=== PATIENT | female | born 1965 | race Caucasian/White ===

== ENCOUNTER 2023-11-14 08:24 | Observation (INO) ==
--- NOTE | 2023-10-19 11:00 | PAT Medication Instructions ---
Medication Instructions Date of Service October 19, 2023 Home Medications hydrocodone 7.5 mg-acetaminophen 325 mg tablet 1 tab PO TID PRN empagliflozin 10 mg tablet (Jardiance) 10 mg PO QAM sertraline 50 mg tablet (Zoloft) 50 mg PO QAM spironolactone 25 mg tablet 25 mg PO QAM torsemide 20 mg tablet 40 mg PO QAM STOP 3 days before surgery empagliflozin 10 mg tablet (Jardiance) 10 mg PO QAM DO NOT take the morning of surgery spironolactone 25 mg tablet 25 mg PO QAM torsemide 20 mg tablet 40 mg PO QAM Take morning of surgery With a small sip of water, OTHERWISE NOTHING TO EAT OR DRINK AFTER MIDNIGHT: sertraline 50 mg tablet (Zoloft) 50 mg PO QAM hydrocodone 7.5 mg-acetaminophen 325 mg tablet 1 tab PO TID PRN(if needed) Take evening before surgery hydrocodone 7.5 mg-acetaminophen 325 mg tablet 1 tab PO TID PRN(if needed) Other Notes If you have any questions please call us at [phone] or [phone] or [phone] or [phone]
--- NOTE | 2023-10-23 10:40 | Anesthesiology Consultation ---
Date of Service October 23, 2023 Assessment & Plan (1) Encounter for pre-operative examination: Chart Review Chart Review: Acceptable Risk for Surgery and Patient seen in Pre Admission Testing - Patient is NOT an ideal OPJ candidate Per PAT appt on 10/23/23, no recent illness/disease exposures, illness related symptoms, or recent illness/disease positive tests. Will leave to surgeon's discretion if preop Covid testing needed Last seen by pulm 10/03/23= seen for follow up. Patient feels like she is doing better than 6-8 months ago. Using supportive oxygen when out3 lpm. Room air at home. Currently under evaluation for knee pain. Patient has risk factors for development of smoking-related lung diseasedo not think that there is any compelling evidence that this is the case. Rather feel breathing issues likely related to heart failure exacerbation triggered by influenza that led to her hospitalization of acute respiratory failure. PFTs can be explained by her obesity. Has stopped use of maintenance therapy for what was thought tentatively to be COPD without detriment. Chronic hypoxemic and possibly hypercarbic failure which is being addressed with PAP therapy plus supplemental oxygen at night. Also addressing her severe JEY. In generalshe seems to be on an improving course. Continue to current therapy. Does not feel maintenance inhaler needed. Encouraged weight loss. Also encourage smoking cessation. Follow-up in 6 months. Patient last seen by cardio 07/26/23= seen for follow up on chronic diastolic CHF. Patient doing very well. On good medical regiment. This includes loop diuretic, spironolactone and Jardiance. Follow-up in 1 year. Right knee arthroscopy 08/02/2020 = done under [facility] with LMA #4. Atraumatic placement. Teaching & Discussion Pre-Anesthesia Teaching/Discussion Notes: Instructed NPO after midnight before surgery,except medications with 15 cc of water. Medication instructions provided according to the PAT guidelines. History Surgery Operation Date: 11/14/23 11:10 Proposed Procedures p Left Total Knee Arthroplasty - Sedrick Ortez MD Height/Weight Height: 5 ft 7 in Weight: 164.654 kg Allergies Allergy/AdvReac Type Severity Reaction Status Date / Time No Known Allergies Allergy Verified 10/19/23 09:38 Medications Home Medications Medication Instructions Recorded Confirmed Last Taken hydrocodone 7.5 mg-acetaminophen 1 tab PO TID PRN Pain 06/24/20 10/19/23 Unknown 325 mg tablet empagliflozin 10 mg tablet 10 mg PO QAM 10/19/23 10/19/23 Unknown (Jardiance) sertraline 50 mg tablet (Zoloft) 50 mg PO QAM 10/19/23 10/19/23 Unknown spironolactone 25 mg tablet 25 mg PO QAM 10/19/23 10/19/23 Unknown torsemide 20 mg tablet 40 mg PO QAM 10/19/23 10/19/23 Unknown Additional Notes: Takes Jardiance for CHF- no known hx of DM Past Medical History Medical History (Updated 10/23/23 @ 10:35 by Tracy Michel PA-C) Anxiety CHF (congestive heart failure) follows with [facility] Cardiology. reason for Jardiance per pt. chronic diastolic CHF per cardio records EF 60-64% on 02/2023 ECHO Depression Morbid obesity On home oxygen therapy - 2 LPM qHS and 2-3 LPM PRN daily (prescribed oxygen following hospitalization summer 2022 - [facility] - admitted with CHF) - follows with [facility] Pulmonology. Osteoarthritis Sleep apnea CPAP + 2 LPM O2 q HS Urinary incontinence Exercise / Class Metabolic Activity III < 4 Walking/Shop/Light housework (no chest pain or SOB with flat surface ambulation- uses cane ) Past Family History Family History Mother Diabetes Other No family history of adverse response to anesthesia Past Surgical History Surgical History History of ankle surgery Rt History of arthroscopy of left knee History of arthroscopy of right knee History of colonoscopy History of tooth extraction History of tubal ligation Past Anesthesia History No Hx of Anesthesia Complications and No Family Hx of Anesthesia Complications History of PONV No Hx of PONV and No Hx of Motion Sickness Social History Smoking Status: Current every day smoker tobacco type: cigarettes Smoking cigarettes per day: 1/2 ppd Do You Dip or Chew Tobacco: No Hx Alcohol Use: No Hx Substance Use: No substance use type: does not use Review of Systems - Chronic mild wheezing - stable Patient denies chest pain, shortness of breath at rest, reflux, cough, palpitations. No hx of seizures, stroke, [place]. No hx of blood clots or blood transfusions Physical Exam Vital Signs VITALS BP 123/66 P 69 TEMP 98.3 SP02 93% on RA RESP 16 Constitutional no acute distress ENMT Mouth: no TMJ clicking Thyromental Distance: > or= 3.5 Finger Breadths (3.5) Mallampati Class: II Mouth / Teeth: 2 1. Missing 2. Missing 3. Missing 4. Missing 5. Missing 6. Missing Missing side teeth and molars and see picture Neck + short neck and + thick neck; neck extension not limited Respiratory normal respiratory effort; no respiratory distress Auscultation: lungs clear to auscultation bilaterally; no wheezes Cardiovascular Rate/Rhythm: regular rate and regular rhythm Heart Sounds: no murmur Vessels: no carotid bruit Musculoskeletal Spine: no pain with cervical ROM Extremities: extremities normal to inspection Psychiatric Orientation: alert Lab Results Anesthesia Preop Results Results Anesthesia Widget: 2 WBC 11.62 K/ul (4.8-10.8) H 10/23/23 Hgb 14.3 g/dl (12.0-16.0) 10/23/23 Hct 42.4 % (37.0-47.0) 10/23/23 Plt 273 K/uL (130-400) 10/23/23 Na 136 mmol/L (136-145) 10/23/23 K 4.1 mmol/L (3.5-5.1) 10/23/23 Cl 97 mmol/L (98-107) L 10/23/23 CO2 32 mmol/L (21-32) 10/23/23 BUN 10 mg/dl (6-23) 10/23/23 Creat 0.51 mg/dl (0.6-1.2) L 10/23/23 Glucose Level 106 mg/dl (70-99(Fasting)) H 10/23/23 PT 10.3 Seconds (9.0-12.0) 10/23/23 PTT 32 Seconds (21-31) H 10/23/23 INR 0.9 (0.9-1.1) 10/23/23 Blood Type O Negative 10/23/23 Antibody Screen NEGATIVE 10/23/23 Testing Electrocardiogram Date: 10/23/23 Findings: + NSR @ (64bpm) Normal EKG per cardio Chest X-Ray Date: 10/23/23 Findings: + NAD Echocardiogram Date: 03/13/23 EF: 60-64% LV Function: normal RWMA: + none Other Findings: + LVH (Mild/concentric) and + diastolic dysfunction (Grade 1) LV endocardium is adequately assessed during ultrasonic contrast. RV cavity is mildly dilated with mildly reduced systolic function. Normal pulmonary pressure. Estimated PASP 30 mmHg Mild TR. When compared to prior study 07/2022no significant change was found
--- NOTE | 2023-11-11 08:57 | History & Physical Report ---
Date of Service November 11, 2023 Assessment & Plan (1) Bilateral primary osteoarthritis of knee: 58-year-old morbidly obese patient with history of bilateral knee scopes in the past with advanced bilateral knee arthritis. She failed conservative measures. She would like to proceed with a knee replacement. Left knee bothers him more than the right. Plan: Orgran proceed with a left knee replacement. The risks Mente this procedure were explained the patient and include but not limited to DVT PE infection neurological and vascular bleeding palm pain limb range of motion sepsis fairly her symptoms excetra. The patient understands and desires to proceed. Informed consent was obtained. I did explain to her that with her increased size she is increasing her risk of infection and thrombosis. Will do all we can to prevent those issues. She does have a history of some heart failure in the past but currently stable and follows with [facility] cardiology. She is plan to a discharge to home with [facility]. Her spouse and grandchildren were assist in her care. History of Present Illness Chief Complaint: . Persistent bilateral knee pain and discomfort. Primary Care Provider: Ganesh Plascencia DO Patient is a 58-year-old female from [place] who presents for surgical treatment of her knees. She has a long history of knee problems treated at [facility] and Dr. Pagan in the past. She has been through extensive conservative treatment. She has had both knees scoped the left one done about 2 to 3 years ago and the right one done about 10 years ago. This provided very temporary minor relief. She had multiple injections which become less successful over time. She is obese and try to lose weight but having difficulty due to her limited mobility. She is open to having both knees replaced in the future. She has had to resort to using a cane intermittently to get around. The left knee bothers her more than the right. Allergies Allergy/AdvReac Type Severity Reaction Status Date / Time No Known Allergies Allergy Verified 10/19/23 09:38 Home Medications Medication Instructions Recorded Confirmed Type hydrocodone 7.5 mg-acetaminophen 1 tab PO TID PRN Pain 06/24/20 10/19/23 History 325 mg tablet empagliflozin 10 mg tablet 10 mg PO QAM 10/19/23 10/19/23 History (Jardiance) sertraline 50 mg tablet (Zoloft) 50 mg PO QAM 10/19/23 10/19/23 History spironolactone 25 mg tablet 25 mg PO QAM 10/19/23 10/19/23 History torsemide 20 mg tablet 40 mg PO QAM 10/19/23 10/19/23 History Past Med/Surg History Medical History (Updated 11/11/23 @ 08:55 by Sedrick Ortez MD) Bilateral primary osteoarthritis of knee Urinary incontinence Anxiety CHF (congestive heart failure) follows with [facility] Cardiology. reason for Jardiance per pt. chronic diastolic CHF per cardio records EF 60-64% on 02/2023 ECHO On home oxygen therapy - 2 LPM qHS and 2-3 LPM PRN daily (prescribed oxygen [facility] - admitted with CHF) - follows with [facility] Pulmonology. Morbid obesity Osteoarthritis Sleep apnea CPAP + 2 LPM O2 q HS Depression Surgical History History of arthroscopy of right knee History of tooth extraction History of ankle surgery Rt History of arthroscopy of left knee History of tubal ligation History of colonoscopy Family History Mother Diabetes Other No family history of adverse response to anesthesia Social History Smoking Status: Current every day smoker Tobacco Type: Cigarettes Cigarettes Per Day: 1/2 ppd; Second Hand Exposure: Yes ( smokes); Do You Dip or Chew Tobacco: No; Tobacco Cessation Education Requested by Patient: No Hx Alcohol Use: No Hx Substance Use: No Preferred Language: Latvian Communication Ability: Effective Materials Planning Manager Required: No Beliefs That Will Affect Care: None Current Living Situation: Spouse and Family Feels Safe at Home: Yes Safety Concerns: Feels Safe At This Time Assistive Devices: Cane, Glasses and Walker Assistive Devices Comment: cane/walker prn Review of Systems All systems reviewed & are unremarkable except as noted in HPI & below. Physical Exam . Physical examination reveals a pleasant middle-age female. Looks to be in reasonably good health. She is moderately obese. Large soft tissue envelope. She ambulates independently but with a waddling type gait. Examination of the knees reveals large soft tissue envelope. She got varus alignment to her knees. She is tender around the joint lines. Range of motion is pretty symmetric with near full extension to 100 1015 degrees of flexion. There is no gross instability either side. No particular pain with hip motion. Small knee effusions. Constitutional WD/WN, vitals as above Neck trachea midline, no thyromegaly Respiratory normal respiratory effort, lungs clear to auscultation Cardiovascular RRR, no murmur, no edema Chest (Breasts) normal inspection/palpation of breasts Gastrointestinal (Abdomen) normal bowel sounds, soft, nontender, no hepatosplenomegaly Results & Data Results & Data Laboratory Results . Diagnostic Findings . X-rays of both knees were reviewed. Shows advanced tricompartment DJD in both knees. Got complete loss of medial joint space. A little bit of tibiofemoral subluxation. Got osteophytes in all 3 compartments. The left knee is clearly worse than the right. PG Care Time/CCT Total # of Minutes Spent Total Time Spent with Patient: Total time spent is greater than 50% in coordination of care (as documented) at patient's floor/unit and/or counseling patient: Coding Level of Care Code None Diagnoses Bilateral primary osteoarthritis of knee M17.0
[~2023-11-14 08:24] MED LIST: BUPIVACAINE 0.5 % 5 MG/1 ML PF 10ML VIAL ONE; DEXAMETHASONE SOD INJ 4 MG/ML VIAL ONE; ROPIVACAINE 0.5% 5 MG/ML 30 ML VIAL ONE
--- NOTE | 2023-11-14 08:48 | History & Physical Bridge Note ---
Date of Service November 14, 2023 History & Physical Bridge Note I have examined the patient, reviewed the History & Physical and in the interval since the performance of the History & Physical I have noted the following changes of clinical significance: no changes noted
[2023-11-14] MEDS: FAMOTIDINE 20 MG TAB PO SCH (08:58)
[2023-11-14] MEDS: METOCLOPRAMIDE HCL 10 MG TABLET PO SCH (08:58)
[2023-11-14] MEDS: ACETAMINOPHEN 500 MG TAB PO SCH ×2 (08:58→20:31)
[2023-11-14] MEDS: CeleBREX 200 MG CAP PO SCH (08:58)
[2023-11-14] MEDS: dexAMETHasone**PF** 10 MG/ML VIAL IV SCH (08:58)
[2023-11-14] MEDS: LR 500ML BOLUS, THEN 15ML/HR IV SCH (08:59)
[2023-11-14] MEDS: LR 60ML/HR IV SCH (08:59)
[2023-11-14] MEDS: Scopolamine 1 MG TDSY TD SCH (08:59)
[2023-11-14] MEDS ORDERED: PROMETHAZINE HCL 6.25 MG in SODIUM CHLORIDE 0.9% 50 ML IV PRN (09:19)
[2023-11-14] MEDS ORDERED: ATROPINE SULFATE 0.1 MG/ML 10ML SYR IV PRN (09:19)
[2023-11-14] MEDS ORDERED: HYDROmorphone INJ 2 MG/ML SYR/VIAL IV PRN (09:19)
[2023-11-14] MEDS ORDERED: ePHEDrine sulfate 50 MG/ML AMP IV PRN (09:19)
[2023-11-14] MEDS ORDERED: MIDAZOLAM HCL 1 MG/ML 2ML VIAL ONE (09:36)
[2023-11-14] MEDS ORDERED: fentaNYL citrate PF 100 MCG/2 ML VIAL ONE (09:36)
[2023-11-14] MEDS ORDERED: PROPOFOL IV EMULSION 10 MG/ML 20 ML VIAL IV ONE ×3 (10:01→13:11)
[2023-11-14] MEDS ORDERED: ONDANSETRON INJ 2 MG/ML 2 ML VIAL ONE (10:01)
[2023-11-14] MEDS ORDERED: LIDOCAINE 2% 2 ML VIAL/AMP(20MG/ML) INFIL ONE (10:01)
[2023-11-14] MEDS: ORTHO JOINT ANESTHETIC ONE (11:57)
[2023-11-14] MEDS: VANCOMYCIN HCL 1000MG/20ML VIAL ONE (12:11)
[2023-11-14] MEDS: TRANEXAMIC ACID 1,000 MG **IV Intra-op IV SCH (12:21)
[2023-11-14] MEDS: ROPIV 0.5% 246mg, Ketorolac 30mg, EPINEPHrine 0.5mg in NSS INFIL SCH (12:21)
[2023-11-14] MEDS ORDERED: ePHEDrine sulfate 50 MG/5 ML SYR ONE (12:28)
[2023-11-14] MEDS ORDERED: DEXAMETHASONE SOD INJ 4 MG/ML VIAL ONE (12:46)
[2023-11-14] MEDS ORDERED: ALBUTEROL HFA 8 GM INHALER INH ONE (12:46)
[2023-11-14] MEDS ORDERED: NEOSTIGMINE METHYLSULFATE 1 MG/ML 10ML VIAL ONE (12:47)
[2023-11-14] MEDS ORDERED: GLYCOPYRROLATE 0.2 MG/ML VIAL ONE (12:47)
[2023-11-14] MEDS ORDERED: SUCCINYLCHOLINE CHLORIDE 20 MG/ML 10 ML VIAL IV ONE (13:11)
[2023-11-14] MEDS ORDERED: ROCURONIUM BROMIDE 10 MG/ML 5 ML VIAL IV ONE (13:11)
--- NOTE | 2023-11-14 13:33 | Operative Report ---
PG Post Operative Report Pre & Post Diagnosis Operation Date: 11/14/23 10:25 Pre-Op Diagnosis: Left Knee Degenerative Joint Disease Post-Op Diagnosis: Left Knee Degenerative Joint Disease I identified the patient and participated in the time-out.: Yes Procedure Operation Date: 11/14/23 10:25 Actual Procedures p Left Total Knee Arthroplasty, Cemented(Left) - Sedrick Ortez MD Surgeon Sedrick Ortez MD Quilt Sewer Anthony Fisher PA-C Estimated Blood Loss 50 Findings Consistent with Post-Op Diagnosis Operative findings were advanced left knee tricompartment DJD. She had a very large soft tissue envelope. She had extensive grade 4 [id number] disease in all 3 compartments most severe medially. She had osteophytes in all 3 compartments. Moderate-sized joint effusion. Specimens Left knee sent for pathology. Anesthesia Type General Regional Complications none Disposition Accompanied Patient To Recovery: No Indications Patient is a 58-year-old morbidly obese female said a long history of bilateral knee pain discomfort left side greater than right. Is been through extensive conservative treatment in the past including a knee arthroscopy. This became less successful over time patient became more debilitated by her disease. She is attempted to lose weight unsuccessfully due to her limited mobility. She was strongly desiring to proceed with knee arthroplasty on the left knee. Description of Procedure Operative implants consist of: 1 Biomet Vanguard size 65 left posterior stabilized femoral component. 2. Biomet size 75 Vanguard 360 tibial tray with a 80 x 15 mm stem with a 2.5 mm offset and a small cruciate wing. 3. 12 mm post stabilized polyethylene insert. 4. 31 x 8 all poly patella. The patient was taken the op room, identified, and placed on the operating table in the supine position. All contact areas were appropriately padded. IV antibiotics tried by anesthesia team. A spinal anesthetic and abductor canal block had been provided in the holding area. Unfortunately, they had difficulty maintaining her O2 sats so a general anesthetic was implemented. A Dial catheter was placed in sterile fashion. A left thigh tent was then placed in the left lower extremities then prepped and draped in usual sterile fashion. The left leg was elevated exsanguinated with use of an Esmarch and a turn was placed at 350 mmHg. An anterior approach the left knee was then performed through a longitudinal incision centered over the patella. Sharp dissection was carried through subcutaneous tissue down the extensor mechanism. A medial prepped arthrotomy incision was made. Some subperiosteal dissection medially. The fat pad was resected from Neath patella tendon. Lateral patellofemoral ligament was released. Patella subluxated laterally and the knee was flexed. The osteophytes taken off the distal femur. The ACL PCL were then released from distal femur and the tibia subluxated anteriorly. We elected to place a stem in the tibia due to this patient's large size. The intercondylar eminence was excised. I then under the IM canal the tibia and reamed up to a size 15. The reamer was left in place. The IM cutting guide was placed in the proximal tibial cut was made essentially flush with the most deficient aspect the medial tibial plateau. The tibia sized to a size 75. We excised this for three 2.5 mm offset. The tibia was prepared for a 2.5 mm offset stem. The implant was assembled and placed and fit nicely. Attention drawn the femur. The distal femur examined the sharp drill. Intramedullary canal was suction. A left 5 degree valgus cutting guide was placed. The distal femoral cutting block was pinned in place. This femoral cut was made to take an additional 3 mm of bone off distal femur. The femur was then sized to a size 65. The AP cutting block was pinned parallel to the epicondylar axis which was 5 degrees of external rotation. The anterior cut, anterior chamfer, posterior cut, posterior chamfer cuts were made. The box cutting guide was placed in the just slight lateral and the box cut was made. The knee was flexed. The remnants of the medial and lateral menisci were excised. The osteophytes were taken off the posterior aspect the femur. A trial femoral component was placed. The tibial tray was assembled and placed in the tibia. The knee was then trialed and the 12 mm insert fit most appropriately. Attention drawn the patella. The patella was cleaned of all soft tissues. Patella thickness measured 23 mm in thickness was cut down to 14. Was sized to a size 31 patella. The lug holes were drilled for 31 patella. The lateral osteophyte was removed. Patella button was placed. Knee was taken through range of motion patella tracked nicely with no thumbs test. Attention drawn to placing the permanent components. Nupathe all trial components were removed. Bone plug was placed in the distal femur limit blood loss. Double batch Palacos G cement was mixed. Biomet Vanguard size 65 posterior stabilized femoral component, a size 75 Vanguard III 160 tibial tray with a 15 x 80 mm offset stem and a small cruciate wing, a 12 mm post stabilized polyethylene insert, and a 31 x 8 all poly patella then cemented in place. The knee was brought out into full extension till cement hardened. Final cement check was then performed. The pericapsular tissues were injected with total of 100 cc of Ortho a joint mix. The patient did receive 1 g of tranexamic acid but the tourniquet was then let down for final tourniquet time 68 minutes. Hemostasis assured use electrocautery. Extensor Meclomen closed with combination 1 PDS suture and then 1 Vicryl suture in a [id number] fashion. The extensor mechanism checked found to be intact through subcutaneous tissues then closed with 2 Dexon suture in a buried interrupted fashion skin was closed skin [place]. Leg was then cleaned and dried and sterile dressed with Xeroform, 4 fours, sterile cast padding, and an Mario bandage were applied. The patient then brought out of general esthesia and transferred to the recovery room in stable condition. The patient tolerated procedure well and there were no complications. Anthony Fisher, my physician assistant dean of students, was present for the entire procedure. His assistance was essential and required for appropriate patient positioning, prepping and draping, surgical exposure, performing the technical details of the operation, placement the implants, closure of the wound, and placement of the sterile bandage. I attest to the content of the Intraoperative Record and any orders documented therein. Any exceptions are noted below.
--- NOTE | 2023-11-14 14:18 | XRay Report ---
XR knee LT 1 or 2V routine CLINICAL HISTORY: Postoperative evaluation. COMPARISON: Left knee radiographs October 12, 2023. FINDINGS: Alignment of the left knee arthroplasty is anatomic. There is no periprosthetic fracture o r unexpected radiopaque foreign body. Skin [place]. IMPRESSION: Expected findings following left knee arthroplasty. ACT 112: Negative or not required by law. Electronically signed by: Ibrahima Orlando M.D. 11/14/2023 2:17 PM
--- NOTE | 2023-11-14 14:29 | Anesthesiology Progress Note ---
Date of Service November 14, 2023 Anesthesia Post Procedure Vital Signs Vital Signs: Temp Pulse Pulse Resp BP Pulse Ox O2 Del Method 11/14/23 14:15 60 13 127/79 96 CPAP 11/14/23 14:05 65 12 121/70 92 CPAP 11/14/23 13:55 68 15 131/80 93 CPAP 11/14/23 13:45 65 17 128/83 91 CPAP 11/14/23 13:35 36.3 C L 82 20 107/76 94 CPAP 11/14/23 08:51 Room Air 11/14/23 08:30 36.7 C 72 22 142/86 H 91 Room Air O2 Flow Rate 11/14/23 14:15 6 11/14/23 14:05 6 11/14/23 13:55 6 11/14/23 13:45 6 11/14/23 13:35 6 11/14/23 08:51 11/14/23 08:30 Transfer of Care Handoff Completed per policy Notes Mental Status: alert / awake / arousable and participated in evaluation Nausea / Vomiting: adequately controlled Pain: adequately controlled Airway Patency, RR, SpO2: stable & adequate BP & HR: stable & adequate Hydration State: stable & adequate Neuraxial Anesthesia: was administered and sensory block is resolving Anesthetic Complications: no major complications apparent and Pt Satisfied with anesthetic care
[2023-11-14] MEDS ORDERED: diphenhydrAMINE Capsule 25 MG CAP PO PRN (15:23)
[2023-11-14] MEDS ORDERED: NALOXONE HCL 0.4 MG/1 ML VIAL/CARP IV PRN (15:23)
[2023-11-14] MEDS ORDERED: bisacodyL 10 MG SUPP PR PRN (15:23)
[2023-11-14] MEDS ORDERED: PHARMACY GLYCEMIC MGMT CONSULT PRN (15:23)
[2023-11-14] MEDS ORDERED: METOCLOPRAMIDE HCL INJ 5 MG/ML 2 ML VIAL IV PRN (15:23)
[2023-11-14] MEDS ORDERED: ALUMINUM/MAGNESIUM SUSP 30 ML UDC PO PRN (15:23)
[2023-11-14] MEDS ORDERED: MAGNESIUM HYDROXIDE SUSP 30 ML UDC PO PRN (15:23)
[2023-11-14] MEDS ORDERED: ONDANSETRON INJ 2 MG/ML 2 ML VIAL IV PRN (15:23)
[2023-11-14] MEDS ORDERED: HYDROmorphone INJ 0.5 MG/0.5 ML SYR IV PRN (15:23)
--- OUTSIDE RECORDS SUMMARY | 2023-11-14 15:56 | External Medical Summary | Summary of Care ---
Author Name Unknown Organization [facility] Address [address] [place] [address] Phone [phone] Care Team Providers Care College Coach Name Role Phone Ganesh Plascencia DO Primary Care Provider [phone] Encounter Details Date Type Department Care Team (Late st Contact Info) Description 11/07/2023 Telephone Cardiology [place] [address] [facility] [place] [address] [facility] [place] [phone] Allergies No known active allergiesdocumented as of this encounter (statuses as of 11/07/2023) Medications Medication Sig Dispensed Refills Start Date End Date Status Torsemide 20 MG Oral Tablet (Demadex) Take by mouth 2 Tablets in the morning. 180 Tablet 3 07/14/2022 Active Empagliflozin 10 MG Oral Tablet (Jardiance) Take 1 Tablet by mouth in the morning. Obtaining through PAP. 90 Tablet 3 02/06/2023 Active Ondansetron HCl 4 MG Oral Tablet Take 1 Tablet by mouth every 8 hours as needed for Nausea. 20 Tablet 0 03/14/2023 Active Additional Information Patient not taking.Reported on 10/03/2023 HYDROcodone-Acetam inophen 7.5-325 MG Oral Tablet Take 1 Tablet by mouth every 8 hours as needed for Pain, Severe. 3 Tablet 0 03/14/2023 Active Spironolactone 25 MG Oral Tablet (Aldactone) Take 1 Tablet by mouth in the morning. 90 Tablet 3 03/29/2023 Active Ventolin HFA 108 (90 Base) MCG/ACT Inhalation Aerosol Solution Inhale 2 Puffs by mouth every 4 hours as needed for Shortness of Breath or Wheezing. 18 g 6 04/04/2023 Active Sertraline HCl 50 MG Oral Tablet (Zoloft) Take 1 Tablet by mouth in the morning. 0 Active Hospital, Clinic, or Other Facility Administered Medication Ordered Dose Route Frequency Start Date End Date Status Albuterol Sulfate (Proventil) (5 MG/ML) 0.5% *conc* inhalation solution 2.5 mgIndications:Centrilob ular emphysema (HCC) 2.5 mg NEBULIZER PRN 04/04/2023 04/03/2024 Acti ve documented as of this encounter (statuses as of 11/07/2023) Active Problems Problem Noted Date Diagnosed Date Chronic respiratory failure with hypoxia 024 JEY (obstructive sleep apnea) 10/03/2023 Chronic diastolic congestive heart failure 10/03 Chronic respiratory failure with hypoxia and hyp ercapnia 10/03/2023 Cardiomyopathy 01/12/2023 Obesity, morbid (more than 1 00 lbs over ideal weight or BMI > 40) 12/14/2009 Overview: Per Obesity Taxonomy ICD-10 update of inactive term CARLTON RESEARCH OTHER*[id number] 08/13/2007 Major depressive disorder 06/06/2007 Overview: ICD-10 update of inactive term History of tobacco use 06/06/2007 ADVANCE DIRECTIVE INFORMATION 05/16/2007 Overview: No, Advance Directive brochure given to patient. documented as of this encounter (statuses as of 11/07/2023) Resolved Problems Problem Noted Date Diagnosed Date Resolved Date Hypokalemia 03/12/2023 03/13/2023 Acute respiratory failure with hypoxia 03/12/2023 10/03/2023 Nausea, vomiting and diarrhea 03/12/2023 03/13/2023 Abdominal pain 03/12/2023 03/13/2023 Morbid obesity, BMI not known 06/06/2007 12/14/2009 Overview: Per Obesity Taxonomy documented as of this encounter (statuses as of 11/07/2023) Immunizations Name Administration Dates Next Due TDAP (age 10 and older)(Boostrix) 01/07/2018 documented as of this encounter Social History Tobacco Use Types Packs/Day Years Used Date Smoking Tobacco: Some Days Cigarettes Last attempted to quit: 03/09/2023 Smokeless Tobacco: Never Comments:04/04 3/4 cigarettes per day and wearing the patch Alcohol Use Standard Drinks/Week Comments Never 0 (1 standard drink = 0.6 oz pur e alcohol) Sex and Gender Information Value Date Recorded Sex Assigned at Not on file Gender Identity Not on file Sexual Orientation Not on file Job Start Date Occupation Industry Not on file Not on file Not on file documented as of this encounter Functional Status Functional Status Response Date of Assess ment Are you deaf or do you have serious difficulty h earing? No 03/12/2023 Are you blind or do you have serious difficulty seeing, even when wearing glasses? No 03/12/2023 Do you have serious difficul ty walking or climbing stairs? (5 years old or older) No 03/12/2023 Do you have difficulty dress ing or bathing? (5 years old or older) No 03/12/2023 Because of a physical, menta l, or emotional condition, do you have difficulty doing errands alone such as visiting a doctor s office or shopping? (15 years old or older) No 03/12/20 Cognitive Status Response Date of Assessm ent Because of a physical, menta l, or emotional condition, do you have serious difficulty concentrating, remembering, or making decisions? (5 years old or older) No 03/12/2023 documented as of this encounter Miscellaneous Notes * Telephone Encounter - Jeny Guy RPh - 11/07/2023 1:35 PM EST Can you verify this patient has active PAP for Jardinace through [facility]? Renewal provider section emailed 08/13/24 but I dont see a referral message in the chart with approval. See scans for provider section Thanks! Jeny Guy Pharm D Clinical [facility] Pharmacist Cardiology 11/07/2023,1:36 PM documented in this encounter Plan of Treatment Scheduled Procedures Name Priority Associated Diagnoses Date/Ti me COLONOSCOPY FLEXIBLE PROXIMA L DIAGNOSTIC Recall Encounter for screening colonoscopy Health Maintenance Due Date Last Done Comments Pneumococcal Vaccine: Pediatrics (0 to 5 Years) and At-Risk Patients (6 to 64 Years) (1 of 2 - PCV) 1970 Depression Screening 1976 HIV Screening 1979 Hepatitis C Screening 1982 Hepatitis B (1 of 3 - 19+ 3-dose series) 1983 Pap Smear 1985 Cervical Cancer Screening 1994 HPV/Co-Test 1994 Cologuard 2009 Fecal Occult Blood Test 2009 Sigmoidoscopy 2009 Zoster Vaccines (1 of 2) 2014 Lipid Panel 05/07/2019 05/07/2014 Mammogram 12/18/2019 12/17/2018, 11/16/2017 COVID-19 Vaccine ( - season) 2023 Influenza Vaccine (FLU shot) (#1) 2023 Diabetes Screening 07/26/2026 07/26/2023, 0 04/09/2023, 03/13/2023, Additional history exists DTaP,Tdap,and Td Vaccines (2 - Td or Tdap) 01/08/2028 01/07/2018 Colonoscopy 08/14/2028 08/14/2018, 08/14/2018 Colorectal Cancer Screening 08/14/2028 GARDASIL-HPV IMMUNIZATION SERIES Aged Out No longer eligible based on patient's age to complete this topic MENINGOCOCCAL (MENACTRA/MENVEO) Aged Out No longer eligible based on patient's age to complete this topic documented as of this encounter Medical Devices Not on filedocumented as of this encounter Advance Directives Latest Code Status on File Code Status Date Activated Date Inactivated Comments Full Code 03/12/2023 2:56 AM 03/14/2023 4:32 PM This order reflects the patients wishes and were consensually agreed upon. Question Answer Comments Discussion of Advance Directives occurred with: Patient Care Teams College Coach Relationship Specialty Start Date End Date Ganesh Plascencia DO [address] [place] [address] PCP - General 04/01/07 documented as of this encounter
--- OUTSIDE RECORDS SUMMARY | 2023-11-14 15:56 | External Medical Summary | Summary of Care ---
Author Name Unknown Organization [facility] Address [address] [place] [facility] [place] [address] Phone [phone] Care Team Providers Care Slip Cover Sewer Name Role Phone Ganesh Plascencia DO Primary Care Provider [phone] Encounter Details Date Type Department Care Team (Late st Contact Info) Description 11/07/2023 Telephone Cardiology [place] [address] [facility] [place] [address] [facility] [place] [phone] Allergies No known active allergiesdocumented as of this encounter (statuses as of 11/08/2023) Medications Medication Sig Dispensed Refills Start Date [...] as of this encounter (statuses as of 11/08/2023) Active Problems Problem Noted Date Diagnosed Date Chronic respiratory failure with hypoxia 024 JEY (obstructive sleep apnea) 10/03/2023 Chronic diastolic congestive heart failure 10/03 Chronic respiratory failure with hypoxia and hyp ercapnia 10/03/2023 Cardiomyopathy 01/12/2023 Obesity, morbid (more than 1 00 lbs over ideal weight or BMI > 40) 12/14/2009 Overview: Per Obesity Taxonomy ICD-10 update of inactive term CARLTON RESEARCH OTHER*[id number] 08/13/2007 Major depressive disorder 06/06/2007 Overview: ICD-10 update of inactive term History of tobacco use 06/06/2007 ADVANCE DIRECTIVE INFORMATION 05/16/2007 Overview: No, Advance Directive brochure given to patient. documented as of this encounter (statuses as of 11/08/2023) Resolved Problems Problem Noted Date Diagnosed Date Resolved Date Hypokalemia 03/12/2023 03/13/2023 Acute respiratory failure with hypoxia 03/12/2023 10/03/2023 Nausea, vomiting and diarrhea 03/12/2023 03/13/2023 Abdominal pain 03/12/2023 03/13/2023 Morbid obesity, BMI not known 06/06/2007 12/14/2009 Overview: Per Obesity Taxonomy documented as of this encounter (statuses as of 11/08/2023) Immunizations Name Administration Dates Next Due TDAP [...] encounter Miscellaneous Notes * Telephone Encounter - Chiara Pichardo OSA - 11/08/2023 11:35 AM EST Patient aware she has Jardiance coverage through the end 2023. Thanks * Telephone Encounter - Jeny Guy, [facility] - 11/07/2023 1:35 PM EST Can you verify this patient has active PAP for Jardinace through [facility]? Renewal provider section emailed 08/13/24 but I dont see a referral message in the chart with approval. See scans for provider section Thanks! Jeny Guy Pharm D Clinical [facility] Pharmacist Cardiology 11/07/2023,1:36 PM documented in this encounter Plan of Treatment Upcoming Encounters Date Type Department Care Team (Late st Contact Info) Description 07/31/2024 1:30 PM EST Office Visit Cardiology [facility] [address] [place] [id number] Lynn Whitehead MD [address] [place] [address] Scheduled Procedures Name Priority Associated Diagnoses Date/Ti [...] 12/18/2019 12/17/2018, 11/16/2017 COVID-19 Vaccine ( - 2022- season) 2023 Influenza Vaccine (FLU shot) (#1) [...] Advance Directives occurred with: Patient Care Teams Slip Cover Sewer Relationship Specialty Start Date End Date Ganesh Plascencia DO [address] [place], [place] [phone] PCP - General 04/01/07 documented as of this encounter
--- OUTSIDE RECORDS SUMMARY | 2023-11-14 15:57 | External Medical Summary | Summary of Care ---
Author Name Unknown Organization [facility] Address [address] [place] [place] [place] [address] Phone [phone] Care Team Providers Care Orange Picking Supervisor Name Role Phone Ganesh Plascencia DO Primary Care Provider [phone] Encounter Details Date Type Department Care Team (Late st Contact Info) Description 11/07/2023 Telephone Cardiology [place] [address] [facility] [place] [address] [facility] 21 [facility] [place] [phone] Allergies No known active allergiesdocumented as of [...] ICD-10 update of inactive term CARLTON RESEARCH OTHER*[id number] 08/13/2007 Major depressive disorder 06/06/2007 Overview: ICD-10 [...] patient has active PAP for Jardinace through [facility]? Renewal provider section emailed 08/13/24 but [...] Advance Directives occurred with: Patient Care Teams Orange Picking Supervisor Relationship Specialty Start Date End Date Ganesh Plascencia DO [address] [place] [address] PCP - General 04/01/07 documented as of this encounter
[2023-11-14] MEDS: Scopolamine CHECK PATCH PLACEMENT SCH (16:00)
--- NOTE | 2023-11-14 16:24 | Consultation ---
Date of Consultation November 14, 2023 Assessment & Plan (1) Bilateral primary osteoarthritis of knee: Plan Ms Sheppard is a 58yoF with PMHx significant for severe JEY on CPAP at night, obesity hypoventilation syndrome, chronic respiratory failure with use of 2-3L oxygen at baseline, chronic diastolic CHF, MDD, tobacco use disorder who is s/p L total knee arthroplasty by orthopedics on 11/14/23. Knee Pain L total knee arthroplasty EBL#50ml Pain management per ortho- currently on toradol, dexamethasone, narcotics Wound management per ortho PT/OT as appropriate DVT prophylaxis per ortho-currently on aspirin 81mg BID Incentive spirometry Monitor H&H for acute blood loss anemia; Pre-op Hgb: 14.3 Bowel regimen while on narcotics Chronic respiratory Failure JEY Obesity hypoventilation Syndrome On 2-3L oxygen supplementation during the day Continue CPAP use at night Follows with [facility] Pulmonology, see recent note from Sep 2023 in the chart scanned in (less concern about a COPD picture) Continue with oxygen supplementation as needed post-op CHF Pt with dx of CHF Follows with [facility] Cardiology Dr Clemens (see last scanned note in chart) On torsemide, spironolactone, Jardiance Continue jardiance for this indication while monitoring glucose levels Monitor for signs of volume overload Mood Continue home SSRI Continue other home meds as ordered. Diet: HH/low sodium DVT prophylaxis: On [id number] BID per ortho Dispo: will likely need rehab, PT/OT ordered Thank you for this consultation. We will follow the patient with you during their hospital stay. You can reach a member of the [facility] Hospitalist Team 09/04 via the hospitalist role on tiger text. History of Present Illness Requesting Physician: Sedrick Ortez MD Reason for Consultation: Medical management Attending Physician: Sedrick Ortez MD History of Present Illness Ms Sheppard is a 58yoF with PMHx significant for severe JEY on CPAP at night, obesity hypoventilation syndrome, chronic respiratory failure with use of 2-3L oxygen at baseline, chronic diastolic CHF, MDD, tobacco use disorder who is s/p L total knee arthroplasty by orthopedics on 11/14/23. States that she has no acute concerns. Notes Hx of JEY and obesity related breathing issues but states she had the surgery today to help with her getting up and exercising to help with the weight loss. Follows with Pulmonology, states that she was told she does not have COPD. Denies SOB, chest pain, palps. Allergies Allergy/AdvReac Type Severity Reaction Status Date / Time No Known Allergies Allergy Verified 11/14/23 08:44 Home Medications Medication Instructions Recorded Confirmed Type hydrocodone 7.5 mg-acetaminophen 1 tab PO TID PRN Pain 06/24/20 11/14/23 History 325 mg tablet empagliflozin 10 mg tablet 10 mg PO QAM 10/19/23 11/14/23 History (Jardiance) sertraline 50 mg tablet (Zoloft) 50 mg PO QAM 10/19/23 11/14/23 History spironolactone 25 mg tablet 25 mg PO QAM 10/19/23 11/14/23 History torsemide 20 mg tablet 40 mg PO QAM 10/19/23 11/14/23 History acetaminophen 500 mg tablet 1,000 mg (2 x 500 mg) PO TID pain 11/12/23 11/14/23 Rx (Tylenol Extra Strength) 3 days #18 tabs aspirin 81 mg tablet,delayed 81 mg PO BID 45 days #90 tabs 11/12/23 11/14/23 Rx release (Nikia Low Dose Aspirin) cefadroxil 500 mg capsule 500 mg PO BID 7 days #14 caps 11/12/23 11/14/23 Rx ketorolac 10 mg tablet 10 mg PO Q6 pain 5 days #20 tabs 11/12/23 11/14/23 Rx ondansetron 4 mg disintegrating 4 mg PO Q8 PRN nausea #20 tabs 11/12/23 11/14/23 Rx tablet oxycodone 5 mg tablet 5 - 10 mg (1 - 2 x 5 mg) PO Q6 PRN 11/12/23 11/14/23 Rx pain #40 tabs sennosides 8.6 mg tablet (Senokot) 8.6 mg PO BID prevent constipation 11/12/23 11/14/23 Rx 14 days #28 tabs Patient History Medical History Bilateral primary osteoarthritis of knee Urinary incontinence Anxiety CHF (congestive heart failure) follows with [facility] Cardiology. reason for Jardiance per pt. chronic diastolic CHF per cardio records EF 60-64% on 02/2023 ECHO On home oxygen therapy - 2 LPM qHS and 2-3 LPM PRN daily (prescribed oxygen following hospitalization summer 2022 - [facility] - admitted with CHF) - follows with [facility] Pulmonology. Morbid obesity Osteoarthritis Sleep apnea CPAP + 2 LPM O2 q HS Depression Surgical History History of arthroscopy of right knee History of tooth extraction History of ankle surgery Rt History of arthroscopy of left knee History of tubal ligation History of colonoscopy Family History Mother Diabetes Other No family history of adverse response to anesthesia Social History Smoking Status: Current every day smoker Tobacco Type: Cigarettes Cigarettes Per Day: 1/2 ppd; Second Hand Exposure: Yes ( smokes); Do You Dip or Chew Tobacco: No; Tobacco Cessation Education Requested by Patient: No Hx Alcohol Use: No Hx Substance Use: No Preferred Language: Paraguayan Communication Ability: Effective Face Man Required: No Beliefs That Will Affect Care: None Current Living Situation: Spouse and Family Feels Safe at Home: Yes Safety Concerns: Feels Safe At This Time Assistive Devices: Cane, Glasses and Walker Assistive Devices Comment: cane/walker prn Review of Systems Review of Systems: All systems reviewed & are unremarkable except as noted in Subjective Physical Exam Physical Exam: General: Alert, oriented. No acute distress Skin: No noted rashes or bruises Psych: Appropriate mood and affect Neuro: No gross deficits HEENT: NC/AT Chest: Nontender to palpation. CV: RRR, Normal s1, s2. No murmurs appreciated Resp: Breath sounds clear bilaterally, no increased effort of breathing. Abdomen:Soft, nontender, nondistended. Extremities: left lower extremity with gera wrap, nonbloody Results & Data Vital Signs (Past 12 Hours) Vital Signs Temp Pulse Pulse Resp BP Pulse Ox O2 Del Method 11/14/23 15:58 36.8 C 72 16 145/86 H 92 Nasal Cannula 11/14/23 15:30 36.5 C 62 16 121/81 93 Nasal Cannula 11/14/23 14:25 36.5 C 73 14 140/84 95 Nasal Cannula 11/14/23 14:15 60 13 127/79 96 CPAP 11/14/23 14:05 65 12 121/70 92 CPAP 11/14/23 13:55 68 15 131/80 93 CPAP 11/14/23 13:45 65 17 128/83 91 CPAP 11/14/23 13:35 36.3 C L 82 20 107/76 94 CPAP 11/14/23 08:51 Room Air 11/14/23 08:30 36.7 C 72 22 142/86 H 91 Room Air O2 Flow Rate 11/14/23 15:58 2 11/14/23 15:30 2 11/14/23 14:25 2 11/14/23 14:15 6 11/14/23 14:05 6 11/14/23 13:55 6 11/14/23 13:45 6 11/14/23 13:35 6 11/14/23 08:51 11/14/23 08:30
[2023-11-14] MEDS ORDERED: INSULIN ASPART PER UNIT CHARGE SC SCH (16:30)
[2023-11-14] MEDS: SODIUM CHLORIDE 0.9% 1,000 ML IV SCH (16:35)
[2023-11-14] MEDS: NICOTINE 14 MG/24 HR PATCH TD ONE (16:35)
[2023-11-14] MEDS: KETOROLAC 30 MG/ML VIAL IV SCH (16:36)
[2023-11-14] MEDS: ASCORBIC ACID 500 MG TAB PO SCH (16:36)
[2023-11-14] MEDS: oxyCODONE HCL IR 5 MG TAB (IMMEDIATE RELEASE) PO PRN (16:38)
[2023-11-14 19:32] VITALS: RESP 16
[2023-11-14] MEDS: TRANEXAMIC ACID / 0.7% NACL 1,000 MG/100 ML BAG IV SCH (20:30)
[2023-11-14] MEDS: DOCUSATE SODIUM 100 MG CAP PO SCH (20:33)
[2023-11-14] MEDS: SENNA 8.6 MG TAB PO SCH ×2 (20:33→20:34)
[2023-11-14] MEDS: ASPIRIN 81 MG ECTAB PO SCH (20:34)
[2023-11-14] MEDS: ceFAZolin 2000MG 2,000 MG/15 ML SYR IV SCH (20:40)
--- NOTE | 2023-11-15 07:07 | Surgery Progress Note ---
Date of Service November 15, 2023 Assessment & Plan (1) Status post left knee replacement: Plan: 58-year-old female postop day 1 from left knee replacement doing pretty well. Pain is controlled. She is neurologically intact. Plan: 1. DVT prophylaxis including thigh-high teds, SCDs, aspirin twice a day. 2. PT/OT. Weight-bear as tolerated left total knee protocol. 3. Pain control doing okay with current pain regimen. 4. Disposition plan to discharge to home with some home health today if she does okay in therapy. Admission and Anticipated Discharge Date Admission Date: November 14, 2023 Subjective 58-year-old female postop day 1 from left knee replacement. She is doing pretty well. Had a pretty good night. Pain is controlled. She been up and ambulating some. No chest pain or shortness of breath. Not feeling dizzy or lightheaded. She is hoping to go home today. Physical Exam Physical Exam: Physical examination was a pleasant large female. She is lying bed looks pretty comfortable. Examination left leg reveals leg to be well aligned. Dressings clean dry and intact. No Securon drainage. She can dorsiflex and plantarflex her foot appropriately. Respiratory: normal respiratory effort, lungs clear to auscultation Cardiovascular: RRR, no murmur, no edema Gastrointestinal (Abdomen): normal bowel sounds, soft, nontender, no hepatosplenomegaly Results & Data Vital Signs (Past 12 Hours) Vital Signs Temp Pulse Resp BP Pulse Ox Pulse Ox O2 Del Method 11/15/23 03:23 36.4 C L 62 16 112/67 90 CPAP 11/14/23 23:15 36.4 C L 62 16 129/82 92 CPAP 11/14/23 20:33 Nasal Cannula, CPAP 11/14/23 20:33 95 11/14/23 19:30 36.5 C 62 16 136/76 95 CPAP O2 Del Method O2 Flow Rate O2 Flow Rate 11/15/23 03:23 5 11/14/23 23:15 5 11/14/23 20:33 2 11/14/23 20:33 CPAP 3 11/14/23 19:30 3 Laboratory Results Lab results are pending PG Care Time/CCT Total # of Minutes Spent Total Time Spent with Patient: Total time spent is greater than 50% in coordination of care (as documented) at patient's floor/unit and/or counseling patient: Coding Level of Care Code 84217 Post Operative Follow-Up Diagnoses Status post left knee replacement Z96.652
[2023-11-15 07:09] LABS: Hematocrit (blood only) 36.6 % (37.0-47.0); Hemoglobin 11.8 g/dl (12.0-16.0); Mean Corpuscular Hgb Conc 32.2 g/dL (32.0-36.0); Mean Corpuscular Volume 102.2 fL (80.0-100.0); Mean Platelet Volume 11.2 fL (9.4-12.4); Platelet Count 284 K/uL (130-400); RDW Coefficient of Variation 14.6 % (11.5-14.5); RDW Standard Deviation 55.2 fL (36.4-46.3); Red Blood Count 3.58 M/uL (4.20-5.40); White Blood Count 19.85 K/ul (4.8-10.8)
[2023-11-15 07:15] VITALS: BP 122/79; PULSE 61; TEMP 97.7; O2SAT 94
[2023-11-15 07:30] LABS: Anion Gap 5 (3-11); BUN Creatinine Ratio 25.4 (10-20); Blood Urea Nitrogen 16 mg/dl (6-23); Calcium 8.9 mg/dl (8.6-10.3); Carbon Dioxide 31 mmol/L (21-32); Chloride 100 mmol/L (98-107); Creatinine Clr Calc Pharmacy 153.1 ml/min; Est GFR (African American) 113.8 ml/min; Est GFR (Non-African American) 98.2 ml/min; Glucose 113 mg/dl (70-99(Fasting)); Sodium 136 mmol/L (136-145)
[2023-11-15 07:44] LABS: Estimated Average Glucose 126 mg/dl
[2023-11-15] MEDS: dexAMETHasone 10 MG in SYRINGE 0 ML IV SCH (08:20)
[2023-11-15] MEDS: EMPAGLIFLOZIN 10 MG TAB PO SCH (08:28)
[2023-11-15] MEDS: MULTIVITAMIN TAB PO SCH (08:28)
[2023-11-15] MEDS: TORSEMIDE 20 MG TAB PO SCH (08:29)
[2023-11-15] MEDS: SERTRALINE HCL 50 MG TABLET PO SCH (08:29)
[2023-11-15] MEDS: SPIRONOLACTONE 25 MG TAB PO SCH (08:29)
[2023-11-15] MEDS: NICOTINE 14 MG/24 HR PATCH TD SCH (08:36)
--- NOTE | 2023-11-15 11:09 | Hospitalist Progress Note ---
Date of Service November 15, 2023 Assessment & Plan (1) Bilateral primary osteoarthritis of knee: Plan Ms Sheppard is a 58yoF with PMHx significant for severe JEY on CPAP at night, obesity hypoventilation syndrome, chronic respiratory failure with use of 2-3L oxygen at baseline, chronic diastolic CHF, MDD, tobacco use disorder who is s/p L total knee arthroplasty by orthopedics on 11/14/23. #Acute anemia 2/2 post operative loss -Pre op 14, post op 11 -Recommend PCP/Surgical follow up with repeat labs. #Left osteoarthritis s/p L total knee arthroplasty EBL#50ml Pain management per ortho- currently on toradol, dexamethasone, narcotics Wound management per ortho PT/OT as appropriate DVT prophylaxis per ortho-currently on aspirin 81mg BID Incentive spirometry Monitor H&H for acute blood loss anemia; Pre-op Hgb: 14.3 Bowel regimen while on narcotics Chronic respiratory Failure JEY Obesity hypoventilation Syndrome On 2-3L oxygen supplementation during the day Continue CPAP use at night Follows with [facility] Pulmonology, see recent note from Sep 2023 in the chart scanned in (less concern about a COPD picture) Continue with oxygen supplementation as needed post-op CHF Pt with dx of CHF Follows with [facility] Cardiology Dr Clemens (see last scanned note in chart) On torsemide, spironolactone, Jardiance Continue jardiance for this indication while monitoring glucose levels Monitor for signs of volume overload Mood Continue home SSRI Continue other home meds as ordered. Discharge per primary service Thank you for this consultation. We will follow the patient with you during their hospital stay. You can reach a member of the [facility] Hospitalist Team 09/04 via the hospitalist role on tiger text. Admission and Anticipated Discharge Date Admission Date: November 14, 2023 Subjective postop day 1 left knee replacement. She is doing pretty well, denies any acute concerns Physical Exam Constitutional: WD/WN, vitals as above Respiratory: normal respiratory effort, lungs clear to auscultation Cardiovascular: RRR, no murmur, no edema Musculoskeletal: left lower extremity with RITA bandage in place Results & Data Results & Data Vital Signs (Past 12 Hours) Vital Signs Temp Pulse Resp BP Pulse Ox O2 Del Method O2 Flow Rate 11/15/23 08:15 Nasal Cannula, CPAP 2 11/15/23 07:13 36.5 C 61 16 122/79 94 Nasal Cannula 4 11/15/23 03:23 36.4 C L 62 16 112/67 90 CPAP 5 11/14/23 23:15 36.4 C L 62 16 129/82 92 CPAP 5 Laboratory Results Short CBC 11/15/23 Range/Units 05:32 WBC 19.85 H (4.8-10.8) K/ul Hgb 11.8 L (12.0-16.0) g/dl Hct 36.6 L (37.0-47.0) % Plt Count 284 (130-400) K/uL BMP 11/15/23 11/15/23 05:32 07:58 Sodium 136 Potassium TNP 4.4 Chloride 100 Carbon Dioxide 31 BUN 16 Creatinine 0.63 Glucose 113 H Calcium 8.9 Medications Administered Home Medications Medication Instructions Recorded Confirmed Last Taken empagliflozin 10 mg tablet 10 mg PO QAM 10/19/23 11/14/23 11/10/23 04:00 (Jardiance) sertraline 50 mg tablet (Zoloft) 50 mg PO QAM 10/19/23 11/14/23 11/14/23 06:30 spironolactone 25 mg tablet 25 mg PO QAM 10/19/23 11/14/23 11/13/23 06:30 torsemide 20 mg tablet 40 mg PO QAM 10/19/23 11/14/23 11/13/23 06:30 acetaminophen 500 mg tablet 1,000 mg (2 x 500 mg) PO TID pain 11/12/23 11/14/23 Unknown (Tylenol Extra Strength) 3 days #18 tabs aspirin 81 mg tablet,delayed 81 mg PO BID 45 days #90 tabs 11/12/23 11/14/23 Unknown release (Nikia Low Dose Aspirin) cefadroxil 500 mg capsule 500 mg PO BID 7 days #14 caps 11/12/23 11/14/23 Unknown ketorolac 10 mg tablet 10 mg PO Q6 pain 5 days #20 tabs 11/12/23 11/14/23 Unknown ondansetron 4 mg disintegrating 4 mg PO Q8 PRN nausea #20 tabs 11/12/23 11/14/23 Unknown tablet oxycodone 5 mg tablet 5 - 10 mg (1 - 2 x 5 mg) PO Q6 PRN 11/12/23 11/14/23 Unknown pain #40 tabs sennosides 8.6 mg tablet (Senokot) 8.6 mg PO BID prevent constipation 11/12/23 11/14/23 Unknown 14 days #28 tabs Active Medications Generic Name Dose Route Start Last Admin Trade Name Lili PRN Reason Stop Dose Admin Acetaminophen 1,000 mg 11/14/23 21:00 11/15/23 08:25 Acetaminophen 500 Mg Tab PO 12/14/23 20:59 1,000 mg TID VIVEK Administration Ascorbic Acid 500 mg 11/14/23 17:00 11/15/23 08:25 Ascorbic Acid 500 Mg Tab PO 12/14/23 16:59 500 mg BIDM VIVEK Administration Aspirin 81 mg 11/14/23 21:00 11/15/23 08:26 Aspirin 81 Mg Ectab PO 12/14/23 20:59 81 mg BID VIVEK Administration Docusate Sodium 100 mg 11/14/23 21:00 11/15/23 08:35 Docusate Sodium 100 Mg Cap PO 12/14/23 20:59 Not Given BID VIVEK Empagliflozin 10 mg 11/15/23 09:00 11/15/23 08:28 Empagliflozin 10 Mg Tab PO 12/15/23 08:59 10 mg QAM VIVEK Administration Ketorolac Tromethamine 30 mg 11/14/23 15:45 11/15/23 05:47 Ketorolac 30 Mg/Ml Vial IV 11/16/23 12:01 30 mg Q6 VIVEK Administration Miscellaneous 1 each 11/14/23 16:00 11/15/23 08:21 Scopolamine Check Patch Placement N/A 11/17/23 07:59 1 each QS VIVEK Administration Miscellaneous 1 each 11/15/23 08:59 11/15/23 08:25 Remove Nicoderm Patch N/A 12/15/23 08:58 1 each DAILY@0859 VIVEK Administration Multivitamins 1 tab 11/15/23 09:00 11/15/23 08:28 Multivitamin Tab PO 12/15/23 08:59 1 tab QAM VIVEK Administration Nicotine 14 mg 11/15/23 09:00 11/15/23 08:36 Nicotine 14 Mg/24 Hr Patch TD 12/15/23 08:59 14 mg QAM VIVEK Administration Oxycodone HCl 5 - 10 mg 11/14/23 15:23 11/15/23 10:08 Oxycodone Hcl Ir 5 Mg Tab (Immediate Release) PO 11/28/23 15:22 10 mg Q6 PRN Administration pain Sennosides 8.6 mg 11/14/23 21:00 11/15/23 08:35 Senna 8.6 Mg Tab PO 12/14/23 20:59 Not Given BID VIVEK Sennosides 17.2 mg 11/14/23 21:00 11/14/23 20:33 Senna 8.6 Mg Tab PO 12/14/23 20:59 17.2 mg HS VIVEK Administration Sertraline HCl 50 mg 11/15/23 09:00 11/15/23 08:29 Sertraline Hcl 50 Mg Tablet PO 12/15/23 08:59 50 mg QAM VIVEK Administration Spironolactone 25 mg 11/15/23 09:00 11/15/23 08:29 Spironolactone 25 Mg Tab PO 12/15/23 08:59 25 mg QAM VIVEK Administration Torsemide 40 mg 11/15/23 09:00 11/15/23 08:29 Torsemide 20 Mg Tab PO 12/15/23 08:59 40 mg QAM VIVEK Administration
--- NOTE | 2023-11-16 14:02 | Discharge Summary ---
Date of Service November 16, 2023 Discharge Data Consultations 11/14/23 13:35 Consult Hospitalist Routine Procedures Performed Operation Date: 11/14/23 10:25 Actual Procedures p Left Total Knee Arthroplasty, Cemented(Left) - Sedrick Ortez MD Hospital Course (1) Status post left knee replacement: This is a 58 year old patient admitted on 11/14/23 and underwent total knee arthroplasty. She tolerated the procedure well and there were no complications. Transferred to the PACU post op and later to the orthopedic floor for further care. She was given ancef for antibiotic prophylaxis. She was also given WENDI stockings, SCDs, and aspirin for DVT prophylaxis. Hemoglobin, hematocrit, and vital signs were monitored during her hospital stay and remained stable. Did not require any blood transfusions. There were no complications during her hospital stay. By post op day #1 the patient was tolerating a heart healthy low sodium diet, pain was reasonably controlled with oral pain medicine, and she was participating in physical therapy. On post op day #1 the patient was discharged home and set up with home health care. She was given printed discharge instructions including prescriptions for extra strength tylenol, aspirin, cefadroxil, ketorolac, zofran, senokot, and oxycodone. Continue physical therapy, weight bearing as tolerated. Continue WENDI stockings. Follow up approximately 2 weeks post op or sooner if there are problems or concerns. Coding Level of Care Code None Diagnoses Status post left knee replacement Z96.652
== END 2023-11-15 11:37 | disposition home health service (06) ==
LOC: ASU 08:24 → 3E 08:24
DX: Z79.82 Long term (current) use of aspirin; Z79.899 Other long term (current) drug therapy; Z68.43 Body mass index [BMI] 50.0-59.9, adult; F17.210 Nicotine dependence, cigarettes, uncomplicated; I51.7 Cardiomegaly; M17.12 Unilateral primary osteoarthritis, left knee; E66.2 Morbid (severe) obesity with alveolar hypoventilation; J96.10 Chronic respiratory failure, unspecified whether with hypoxia or hypercapnia; M25.462 Effusion, left knee; I50.9 Heart failure, unspecified